=== PATIENT | female | born 1980 | race Two or more races ===

== ENCOUNTER 2018-03-26 13:00 | Inpatient (IN) | payer BC ==
[2018-04-06] MEDS ORDERED: LACTATED RINGERS 1,000 ML BAG IV ONE (06:30)
[2018-04-06] MEDS ORDERED: BUTORPHANOL 1 MG/ML 1 ML VIAL IV PRN (08:30)
[2018-04-06] MEDS ORDERED: TERBUTALINE 1 MG/ML VIAL SQ PRN (10:41)
[2018-04-06] MEDS ORDERED: METHYLERGONOVINE 0.2 MG/ML 1 ML AMP IM PRN (10:41)
[2018-04-06] MEDS ORDERED: CARBOPROST TROMETHAMINE 250 MCG/ML 1 ML AMP IM PRN (10:41)
[2018-04-06] MEDS ORDERED: OXYTOCIN 10 UNIT/ML 1 ML VIAL IM PRN (10:41)
[2018-04-06] MEDS ORDERED: LIDOCAINE 1% (PF) 10 MG/ML (30 ML SDV) SQ PRN (10:41)
[2018-04-06] MEDS ORDERED: OXYTOCIN 20 UNITS/1000 ML NS 1,000 ML IV SCH ×2 (10:45→18:30)
[2018-04-06 10:48] VITALS: BMI 27.9
[2018-04-06] MEDS: LACTATED RINGERS 1,000 ML IV SCH ×2 (10:50→13:02)
[2018-04-06 12:58] LABS: Basophils # (A) 0.1 k/uL (0-0.2); Basophils % (A) 1 %; Eosinophils # (A) 0.2 k/uL (0-0.7); Eosinophils % (A) 2 %; HCT 40.1 % (34.0-46.0); HGB 13.8 gm/dL (11.4-16.0); Lymphocytes # (A) 2.2 k/uL (1.0-4.8); Lymphocytes % (A) 23 %; MCH 30.8 pg (25.0-35.0); MCHC 34.5 g/dL (31.0-37.0); MCV 89.2 fL (80.0-100.0); Mean Platelet Volume 7.1; Monocytes # (A) 0.5 k/uL (0-1.0); Monocytes % (A) 5 %; Neutrophils # (A) 6.5 k/uL (1.3-7.7); Neutrophils % (A) 67 %; Platelet Count 240 k/uL (150-450); RDW 14.2 % (11.5-15.5); WBC 9.7 k/uL (3.8-10.6)
[2018-04-06 13:54] LABS: Glucose,Whole Blood 85 mg/dL (75-99)
[2018-04-06] MEDS ORDERED: ZOLPIDEM 5 MG TAB PO PRN (18:23)
[2018-04-06] MEDS ORDERED: diphenhydrAMINE 50 MG/ML 1 ML VIAL IVP PRN ×2 (18:23)
[2018-04-06] MEDS ORDERED: LANOLIN CREAM 5 GM TUBE TOPICAL PRN (18:23)
[2018-04-06] MEDS ORDERED: HYDROCORTISONE 2.5% RECTAL CREAM 30 GM TUBE RECTAL PRN (18:23)
[2018-04-06] MEDS ORDERED: ACETAMINOPHEN TAB 325 MG TAB PO PRN (18:23)
[2018-04-06] MEDS ORDERED: diphenhydrAMINE 50 MG CAP PO PRN (18:23)
[2018-04-06] MEDS ORDERED: diphenhydrAMINE 25 MG CAP PO PRN (18:23)
[2018-04-06] MEDS ORDERED: SIMETHICONE 80 MG CHEWABLE PO PRN (18:23)
[2018-04-06] MEDS ORDERED: BENZOCAINE/MENTHOL SPRAY 1 GM/SPRAY AEROSOL TOPICAL PRN (18:23)
[2018-04-06] MEDS ORDERED: WITCH HAZEL 1 EACH MED..PAD TOPICAL PRN (18:23)
--- NOTE | 2018-04-06 18:32 | P.PROBDLV ---
Vaginal Delivery Note - . Vaginal Delivery Note: This is a 37-year-old 1 para 0 at 41-4/7 weeks with an estimated due date of 616 that presented this morning for induction of labor secondary to postdates. Patient was admitted Pitocin induction was begun and amniotomy was performed and clear fluid was obtained without difficulty. Her cervix is noted to be 4 cm. She progressed through labor eventually becoming complete and began pushing. Patient was placed in the modified Danay position and after 3-1/2 hours of pushing a vacuum assist vaginal delivery was completed. The vacuum was placed, head position ( [place]) was confirmed with one push/pull she had a expulsion of the fetus itself the anterior/posterior shoulder were delivered without difficulty and the was placed on the maternal abdomen. Spontaneous cry was noted. After delivery the placenta was doubly clamped and cut and the placenta was delivered intact spontaneously. On inspection the patient's vaginal vault a second-degree laceration with bilateral sulcal tears were noted this was repaired in the usual fashion with 3-0 Rapide. Afterwards the laceration was noted to be intact and hemostatic, rectal exam was performed no abnormality's were noted.. Estimated blood loss 300 mL, weight of 8 pounds 14.5 ounces with a time of 1728, Apgars of 9 and 9 at one and 5 minutes respectively. Patient and tolerated delivery well and are resting comfortably.
[2018-04-06] MEDS: IBUPROFEN 600 MG TAB PO PRN (18:58)
[2018-04-07] MEDS: IBUPROFEN 600 MG TAB PO PRN ×3 (01:20→17:11)
[2018-04-07] MEDS: SENNOSIDES-DOCUSATE SODIUM 1 EACH TAB PO SCH ×3 (01:22→19:35)
[2018-04-07] MEDS: LACTATED RINGERS 1,000 ML IV SCH (04:19)
[2018-04-07 08:08] LABS: Basophils # (A) 0.1 k/uL (0-0.2); Basophils % (A) 0 %; Eosinophils # (A) 0.1 k/uL (0-0.7); Eosinophils % (A) 0 %; HCT 35.2 % (34.0-46.0); HGB 11.9 gm/dL (11.4-16.0); Lymphocytes # (A) 2.1 k/uL (1.0-4.8); Lymphocytes % (A) 14 %; MCHC 33.9 g/dL (31.0-37.0); MCV 88.6 fL (80.0-100.0); Mean Platelet Volume 7.8; Monocytes # (A) 0.8 k/uL (0-1.0); Monocytes % (A) 5 %; Neutrophils # (A) 12.6 k/uL (1.3-7.7); Neutrophils % (A) 80 %; Platelet Count 228 k/uL (150-450); RBC 3.97 m/uL (3.80-5.40); WBC 15.9 k/uL (3.8-10.6)
--- NOTE | 2018-04-07 08:36 | P.DS ---
Providers Date of admission: 04/06/18 06:00 Expected date of discharge: 04/07/18 Attending physician: Kristina Griffith Primary care physician: Stated None - Discharge Diagnosis(es) (1) Post-dates Current Visit: Yes Status: Acute (2) Status post normal vaginal delivery Current Visit: Yes Status: Acute (3) AMA (advanced maternal age) primigravida 35+ Current Visit: Yes Status: Acute Hospital Course: This is a very pleasant 37-year-old 1 para 0 at 41-4/7 weeks that presented for induction of labor secondary to postdates. Patient was started on Pitocin induction of labor, amniotomy was eventually performed with clear fluid being noted. Patient progressed through labor eventually becoming complete, pushing and having a vacuum-assisted vaginal delivery secondary to maternal exhaustion. Patient's course has been uneventful. On this day #1 she is involuting and voiding without difficulty. Her lochia is moderate, she is breast-feeding with some difficulty. She is tolerating a regular diet without nausea or vomiting. She denies discomfort at this time and wishes discharge home at 24 hours. Patient Condition at Discharge: Good Plan - Discharge Summary New Discharge Prescriptions: No Action Pnv No.95/Ferrous Fum/Folic AC [ Multivitamin Tablet] 1 each PO DAILY Discharge Medication List Pnv No.95/Ferrous Fum/Folic AC [ Multivitamin Tablet] 1 each PO DAILY [History] Follow up Appointment(s)/Referral(s): Kristina Griffith DO [Doctor of Osteopathic Medicine] - 1 Week Patient Instructions/Handouts: Vaginal Delivery (DC), Vaginal Delivery (GEN) Activity/Diet/Wound Care/Special Instructions: No tub baths or intercourse until appointment Discharge Disposition: HOME SELF-CARE
[2018-04-07] MEDS: PRENATAL VIT-IRON-FOLIC ACID 1 EACH CAP PO SCH (13:08)
[2018-04-07 23:44] VITALS: RESP 16
[2018-04-08] MEDS: IBUPROFEN 600 MG TAB PO PRN ×3 (03:06→17:57)
[2018-04-08 09:06] VITALS: TEMP 98.2
[2018-04-08] MEDS: SENNOSIDES-DOCUSATE SODIUM 1 EACH TAB PO SCH ×2 (09:08→11:24)
[2018-04-08] MEDS: PRENATAL VIT-IRON-FOLIC ACID 1 EACH CAP PO SCH (11:26)
[2018-04-08 18:39] VITALS: BP 112/75; PULSE 98
== END 2018-04-08 19:45 | disposition home or self-care (01) | DRG 775 ==
LOC: 4FBP 04-06 06:00
PROVIDERS: ADMIT Obstetrics & Gynecology Obstetrics; ATTEND Obstetrics & Gynecology Obstetrics
PROC: 10D07Z6 Extraction of Products of Conception, Vacuum, Via Natural or Artificial Opening (ICD-10-PCS; principal; 2018-04-06)
PROC: 3E033VJ Introduction of Other Hormone into Peripheral Vein, Percutaneous Approach (ICD-10-PCS; 2018-04-06)
PROC: 10907ZC Drainage of Amniotic Fluid, Therapeutic from Products of Conception, Via Natural or Artificial Opening (ICD-10-PCS; 2018-04-06)
PROC: 0KQM0ZZ Repair Perineum Muscle, Open Approach (ICD-10-PCS; 2018-04-06)
DX: O48.0 Post-term pregnancy (principal); O70.1 Second degree perineal laceration during delivery; O75.81 Maternal exhaustion complicating labor and delivery; Z37.0 Single live birth; Z3A.41 41 weeks gestation of pregnancy
CPT/HCPCS: 85025